=== PATIENT | male | born 1935 | race Caucasian/White ===

== ENCOUNTER 2016-08-02 10:57 | Outpatient (CLI) | payer MEDICARE ==
[2016-08-02 11:42] LABS: #Basophils 0.2 thou/uL (0.0-0.2); #Eosinphils 0.3 thou/uL (0.0-0.7); #Lymphocytes 3.8 thou/uL (1.20-3.40); #Monocytes 0.8 thou/uL (0.11-0.59); %Basophils 1.4 % (0.0-1.0); %Eosinophils 2.4 % (0.0-10.0); %Monocytes 6.2 % (0.0-10.0); Hematocrit 44.2 % (42.0-52.0); Mean Platelet Volume 6.1 fL (7.4-10.4)
[2016-08-02 11:52] LABS: ALT (SGPT) 18 U/L (0-55); AST (SGOT) 21 U/L (5-34); Alkaline Phosphatase 64 U/L (40-150); Anion Gap 12 mmol/L (10-20); BUN (Urea Nitrogen) 14 mg/dL (8.4-25.7); Bilirubin, Total 0.8 mg/dL (0.2-1.2); Calc. Creatinine Clearance 0 mL/min (70-130); Calcium 9.7 mg/dL (7.8-10.44); Carbon Dioxide 26 mmol/L (23-31); Chloride 106 mmol/L (98-107); Estimated GFR-MDRD 84; Globulin 2.5 g/dL (2.4-3.5); LDL Cholesterol, Calculated 93 mg/dL; Protein, Total 6.4 g/dL (5.8-8.1)
[2016-08-02 11:58] LABS: Hemoglobin A1c 6.2 % (4.0-6.0)
[2016-08-02 12:09] LABS: Prothrombin Time 24.8 SEC (12.0-14.7)
[2016-08-02 17:44] LABS: Microalbumin Urine 16.6 mg/dL (0.5-50.0)
== END 2016-08-02 10:58 | disposition home or self-care (01) ==
LOC: BURLAB 10:57
PROVIDERS: ATTEND Family Medicine
DX: E78.5 Hyperlipidemia, unspecified (principal); D72.829 Elevated white blood cell count, unspecified; I48.91 Unspecified atrial fibrillation; I25.10 Atherosclerotic heart disease of native coronary artery without angina pectoris; E11.9 Type 2 diabetes mellitus without complications; I10 Essential (primary) hypertension; R80.9 Proteinuria, unspecified
CPT/HCPCS: 36415; 80053; 80061; 82043; 82570; 83036; 85025; 85610